=== PATIENT | female | born 1995 | race Caucasian/White ===

== ENCOUNTER 2019-06-19 19:25 | Emergency (ER) | payer OTHER, SELFPAY ==
[2019-06-19 19:27] VITALS: BP 129/66; PULSE 138; RESP 16; TEMP 37.9; O2SAT 98
--- NOTE | 2019-06-19 19:36 | ECG_ITS ---
Measurements Intervals [place] Rate: 117 P: 15 W[place]: 155 QRS: 107 QRSD: 102 T: 40 QT: 294 QTc: 412 Interpretive Statements SINUS TACHYCARDIA RIGHT AXIS DEVIATION CONSIDER RIGHT VENTRICULAR HYPERTROPHY NONSPECIFIC T-WAVE ABNORMALITY- ANTERIOR LEADS BASELINE WANDER- II, III ABNORMAL ECG Electronically Signed On 06-20-2019 7:04:10 CDT by Stephen Hayden D.O.
[2019-06-19 19:57] LABS: Basophils Percent Auto 0.2 % (0.2-1.2); Eosinophils Percent Auto 0.1 % (0-4.4); Hematocrit 41.3 % (37.0-47.0); Hemoglobin 13.6 g/dL (12.0-15.0); Immature Granulocyte Absolute 0.03 K/mm3 (0.00-0.031); Immature Granulocyte Percent A 0.3 % (0-0.5); Lymphocytes Absolute Auto 0.66 K/mm3 (0.9-3.2); Lymphocytes Percent Auto 7.4 % (18.3-44.2); Mean Corpuscular HGB Conc 32.9 g/dl (32-36); Mean Corpuscular Hemoglobin 29.5 pg (26-34); Mean Corpuscular Volume 89.6 fl (80-100); Mean Platelet Volume 10.4 fl (7.4-10.4); Monocytes Absolute Auto 0.9 K/mm3 (0.1-0.6); Monocytes Percent Auto 9.9 % (2.6-8.5); Neutrophils Absolute Auto 7.4 K/mm3 (1.3-6.7); Neutrophils Percent Auto 82.1 % (45.5-73.1); Platelet Count Result 266 k/mm3 (150-375); Red Blood Count 4.61 M/mm3 (4.2-5.4); Red Cell Distribution Width 13.2 % (11.5-14.5)
[2019-06-19 20:08] LABS: Alanine Aminotransferase 38 U/L (4-35); Albumin Level 4.7 g/dL (3.5-5.1); Alkaline Phosphatase 138 U/L (38-126); Aspartate Amino Transferase 37 U/L (14-36); Bilirubin,Total 0.5 mg/dL (0.2-1.3); Blood Urea Nitrogen 14 mg/dL (7-17); Calcium 8.7 mg/dL (8.4-10.2); Carbon Dioxide 26 mmol/L (22-30); Chloride 101 mmol/L (98-107); Estimated CRCL calculation 112 ml/min; Estimated Glomerular Filt Rate > 60; Glucose 117 mg/dL (65-105); Potassium 3.2 mmol/L (3.4-5.0); Sodium 136 mmol/L (137-145)
[2019-06-19] MEDS: SODIUM CHLORIDE 0.9% IV 1,000 ML 999 ML IV CONT ×2 (20:20→21:28)
[2019-06-19 20:31] VITALS: BP 124/75; PULSE 115; RESP 16; O2SAT 96
--- NOTE | 2019-06-19 20:33 | ED.URI ---
HPI - URI/Sore Throat General Chief Complaint: Upper Respiratory Infection <Parish Link PA-C - Last Filed: 06/19/19 21:07> Stated Complaint: +flu test, wants IVF <Parish Link PA-C - Last Filed: 06/19/19 21:07> Time Seen by Provider: 06/19/19 19:36 <CHUYITA Garcia Last Filed: 06/19/19 21:07> Source: patient <Parish Link PA-C - Last Filed: 06/19/19 21:07> Mode of arrival: ambulatory <CHUYITA Garcia Last Filed: 06/19/19 21:07> Limitations: no limitations <Parish Link PA-C - Last Filed: 06/19/19 21:07> History of Present Illness HPI Narrative: Patient presents for from the [facility] urgent care after testing positive for influenza. Patient states she has had nausea and vomiting that began on Wednesday and follow-up with body aches, dry cough, congestion. Patient states she has had 5-8 episodes of vomiting today. She states she has been trying to drink water. Patient states she was sent here from the urgent care for IV fluids due to her elevated heart rate. Patient states she does not have shortness of breath or chest pain. She does not report localized abdominal pain. Patient was already prescribed tamiflu by the urgent care. <Parish Link PA-C - Last Filed: 06/19/19 21:07> Related Data Allergies/Adverse Reactions: Allergies Allergy/AdvReac Type Severity Reaction Status Date / Time No Known Allergies Allergy Unverified 12/15/18 06:03 <Parish Link PA-C - Last Filed: 06/19/19 21:07> Review of Systems Review of Systems: Narrative: CONSTITUTIONAL: Denies fever, chills, or sweats. EYES: Denies visual changes, redness, or discharge. ENT: Reports rhinorrhea, congestion, sore throat, denies otalgia. CARDIOVASCULAR: Denies chest pain, palpitations, or edema. RESPIRATORY: Reports cough denies dyspnea. GASTROINTESTINAL: Reports nausea, vomiting, denies diarrhea. GENITOURINARY: Denies dysuria or hematuria. SKIN: Denies rash or itching. MUSCULOSKELETAL: Denies back pain, joint pain, or myalgia. NEUROLOGIC: Denies headache, numbness, dizziness, or weakness. PSYCHIATRIC: Denies anxiety or depression. <Parish Link PA-C - Last Filed: 06/19/19 21:07> [facility] Family History Family History: Family History (Updated 12/14/18 @ 09:12 by DOCTOR UNKNOWN) Father Hypertension Grandparent Family history of malignant melanoma <Parish Link PA-C - Last Filed: 06/19/19 21:07> Social History Social History: Social History Smoking status: Never smoker Alcohol intake: current <Parish Link PA-C - Last Filed: 06/19/19 21:07> Exam Narrative: Exam Narrative: GENERAL: Well-appearing, well-nourished, and in no acute distress. Patient not toxic or lethargic in appearance HEAD: Normocephalic, atraumatic. EYES: PERRLA and EOMI. ENT: Nares edematous, clear rhinorrhea no epistaxis. Mucous membranes moist. Oropharynx without tonsillar hypertrophy exudate or other lesions. Bilateral TMs pearly estrada nonbulging NECK: Supple. No adenopathy or masses. No carotid bruits or JVD CHEST: Clear to auscultation. No respiratory distress. No wheezes rales or rhonchi HEART: Regular rate-93bpm and rhythm. No murmur heard. Normal peripheral pulses. ABDOMEN: Soft, nontender, nondistended, normal active bowel sounds. EXTREMITIES: Normal range of motion. No edema. SKIN: Warm, dry, no rash. NEURO: No focal deficits. Alert and oriented x3. PSYCH: Normal mood and affect. <Parish Link PA-C - Last Filed: 06/19/19 21:07> Course Course Emergency Course: Patient's heart rate is actually improved from what with him reported at the urgent care. Patient has come down to between 90 and 100. Patient is now receiving IV fluids and has received Tylenol and she has not had [place] [facility] since earlier this evening. <Parish Link PA-C - Last Filed: 06/19/19 21:07> Vital Signs Vital signs: Vital Signs Temperature 37.9 C H 06/19/19 19:27 Pulse
[2019-06-19] MEDS: ONDANSETRON INJ 4 MG/2 ML VIAL IV PUSH (20:42)
[2019-06-19 22:01] VITALS: TEMP 37.3
[2019-06-19 22:43] VITALS: BP 110/67; PULSE 95; RESP 12; TEMP 37.2; O2SAT 97
== END 2019-06-19 22:44 | disposition home or self-care (01) ==
PROVIDERS: Physician Assistant; Emergency Provider Emergency Medicine
DX: J10.1 Influenza due to other identified influenza virus with other respiratory manifestations (principal); E86.0 Dehydration
CPT/HCPCS: 36415; 80053; 85025; 87804; 93005; 96361; 96374; 96375; 99284; J0131; J2405; J7030